=== PATIENT | female | born 1965 ===

== ENCOUNTER 2016-08-27 15:42 | Emergency (ER) | payer OTHER ==
[2016-08-27 15:43] VITALS: BMI 29.7
[2016-08-27 15:56] VITALS: BP 125/76; PULSE 80; RESP 18; TEMP 98.4; O2SAT 100
--- NOTE | 2016-08-27 16:06 | ED PDOC ---
HPI: General Adult Time Seen by Provider: 08/27/16 16:04 Chief Complaint (Nursing): Abnormal Skin Integrity Chief Complaint (Provider): facial pain History Per: Patient (50 y/o female here for evaluation of insect bite that became painful today. Attempted use of benadryl without relief. Has additional rash right side of flank mildly pruiritic.) Past Medical History Reviewed: Historical Data, Nursing Documentation, Vital Signs Vital Signs: Last Vital Signs Temp 98.4 F 08/27/16 15:54 Pulse 80 08/27/16 15:54 Resp 18 08/27/16 15:54 BP 125/76 08/27/16 15:54 Pulse Ox 100 08/27/16 15:54 - Medical History PMH: Anemia Denies: Chronic Kidney Disease - Surgical History Surgical History: Appendectomy - Family History Family History: States: No Known Family Hx - Home Medications Home Medications: Ambulatory Orders Medication Instructions Recorded Multivitamin [Multi-Vitamin Daily] 1 tab PO DAILY 08/18/15 DiphenhydrAMINE [Benadryl] 25 mg ASDIR 11/22/15 Docusate [Colace] 100 mg PO Q6 PRN 11/22/15 Ibuprofen [Motrin Tab] 200 mg Q6 PRN 11/22/15 Oxycodone HCl/Acetaminophen 5 - 325 mg PO Q6 PRN 11/22/15 [Percocet 5-325 mg Tablet] Butenafine HCl [Lotrimin Ultra] 0.5 gm TP BID #30 cream..g. 08/27/16 Clindamycin [Cleocin] 300 mg PO Q6 #28 cap 08/27/16 - Allergies Allergies/Adverse Reactions: Allergies Allergy/AdvReac Type Severity Reaction Status Date / Time Penicillins Allergy RASH Verified 08/19/15 10:01 Review of Systems ROS Statement: Except As Marked, All Systems Reviewed And Found Negative Skin: Positive for: Rash Physical Exam - Reviewed Nursing Documentation Reviewed: Yes Vital Signs Reviewed: Yes - Physical Exam Appears: Positive for: Well, Non-toxic, No Acute Distress Head Exam: Positive for: ATRAUMATIC, NORMAL INSPECTION, NORMOCEPHALIC Skin: Positive for: Warm. Negative for: Normal Color (erythema/tenderness noted hairline region of scalp 1.5 cm region) Eye Exam: Positive for: EOMI, Normal appearance, PERRL ENT: Positive for: Normal ENT Inspection, Other (left preauricular lymphadenopathy noted) Neck: Positive for: Normal, Painless ROM Cardiovascular/Chest: Positive for: Regular Rate, Rhythm Respiratory: Positive for: CNT, Normal Breath Sounds Gastrointestinal/Abdominal: Positive for: Normal Exam, Bowel Sounds, Soft Back: Positive for: Normal Inspection, Other (2.5 annular lesions noted with cental clearing.) Extremity: Positive for: Normal ROM Neurologic/Psych: Positive for: Alert, Oriented - ECG O2 Sat by Pulse Oximetry: 100 - Progress ED Course And Treament: IMpression: patient has infected insect bite on scalp/ tinea corporis on flank Disposition - Clinical Impression Clinical Impression: Insect bite, nonvenomous, of face, infected, Tinea corporis - Patient ED Disposition Is Patient to be Admitted: No - Disposition Referrals: [facility] [Outside] Disposition: Routine/Home Disposition Time: 16:07 Condition: FAIR Prescriptions: Clindamycin [Cleocin] 300 mg PO Q6 #28 cap Butenafine HCl [Lotrimin Ultra] 0.5 gm TP BID #30 cream..g. Instructions: Insect Bite or Sting (ED), Cellulitis (DC), Tinea Corporis (ED)
== END 2016-08-27 16:40 | disposition home or self-care (01) ==
LOC: H.ER 15:42
DX: B35.4 Tinea corporis (principal); S00.86XA Insect bite (nonvenomous) of other part of head, initial encounter; L08.9 Local infection of the skin and subcutaneous tissue, unspecified; W57.XXXA Bitten or stung by nonvenomous insect and other nonvenomous arthropods, initial encounter

== ENCOUNTER 2017-11-28 06:26 | Emergency (ER) | payer SELFPAY ==
[2017-11-28 06:27] VITALS: BMI 29.7
[2017-11-28] MEDS ORDERED: Lidocaine 5% Patch TD STA (07:41)
--- NOTE | 2017-11-28 07:47 | ED PDOC ---
HPI: Back Time Seen by Provider: 11/28/17 07:03 Chief Complaint (Nursing): Lower Extremity Problem/Injury Chief Complaint (Provider): Lower Extremity Problem/Injury History Per: Patient History/Exam Limitations: no limitations Onset/Duration Of Symptoms: Days (x1 week) Quality Of Discomfort: Cramping Additional Complaint(s): Tereza Tracey is a 52 y/o female with no significant past medical history, who presents to the ED complaining of lower back pain associated with right leg pain , onset x 1 week ago. Patient reports that she has been feeling lower back pain for the past x1 week but in the past x3-4 days the pain has begun radiating down her left leg and causing a cramping pain in her leg and toes. Patient states she has been taking x3 or 4 Advil for pain with minimal relief, her last dose was this morning at 04:30. She denies any fever, cough, shortness of breath , nausea, vomiting, headache, dizziness, urinary problems, or numbness/ tingling. She has no other medical complaints. Past Medical History Reviewed: Historical Data, Nursing Documentation, Vital Signs Vital Signs: Last Vital Signs Temp 98.7 F 11/28/17 06:42 Pulse 61 11/28/17 06:42 Resp 14 11/28/17 06:42 BP 115/78 11/28/17 06:42 Pulse Ox 99 11/28/17 06:42 - Medical History PMH: Anemia Denies: Chronic Kidney Disease - Surgical History Surgical History: Appendectomy, Cholecystectomy, Other surgeries: gastric bypass - Family History Family History: States: CAD (mother) - Social History Current smoker - smoking cessation education provided: Yes Alcohol: Occasional - Home Medications Home Medications: Ambulatory Orders Medication Instructions Recorded Multivitamin [Multi-Vitamin Daily] 1 tab PO DAILY 08/18/15 DiphenhydrAMINE [Benadryl] 25 mg ASDIR 11/22/15 Docusate [Colace] 100 mg PO Q6 PRN 11/22/15 Ibuprofen [Motrin Tab] 200 mg Q6 PRN 11/22/15 Oxycodone HCl/Acetaminophen 5 - 325 mg PO Q6 PRN 11/22/15 [Percocet 5-325 mg Tablet] Butenafine HCl [Lotrimin Ultra] 0.5 gm TP BID #30 cream..g. 08/27/16 Clindamycin [Cleocin] 300 mg PO Q6 #28 cap 08/27/16 Acetaminophen [Tylenol] 650 mg PO Q6H PRN #50 capsule 11/28/17 Cyclobenzaprine [Cyclobenzaprine 10 mg PO TID #30 tab 11/28/17 HCl] Methyl Salicylate/Menthol 1 each TP DAILY #10 adh..patch 11/28/17 [Salonpas Patch] - Allergies Allergies/Adverse Reactions: Allergies Allergy/AdvReac Type Severity Reaction Status Date / Time Penicillins Allergy RASH Verified 11/28/17 06:42 Review of Systems ROS Statement: Except As Marked, All Systems Reviewed And Found Negative Constitutional: Negative for: Fever, Chills Respiratory: Negative for: Cough, Shortness of Breath Gastrointestinal: Negative for: Nausea, Vomiting Genitourinary Female: Negative for: Dysuria, Frequency, Incontinence Musculoskeletal: Positive for: Back Pain (lower), Leg Pain (right ) Neurological: Negative for: Headache, Dizziness Physical Exam - Reviewed Nursing Documentation Reviewed: Yes Vital Signs Reviewed: Yes - Physical Exam Appears: Positive for: Non-toxic, No Acute Distress Head Exam: Positive for: ATRAUMATIC, NORMOCEPHALIC Skin: Positive for: Normal Color, Warm, Dry Eye Exam: Positive for: EOMI, Normal appearance, PERRL ENT: Positive for: Normal ENT Inspection Neck: Positive for: Normal, Painless ROM, Supple Cardiovascular/Chest: Positive for: Regular Rate, Rhythm. Negative for: Murmur Respiratory: Positive for: CNT, Normal Breath Sounds Gastrointestinal/Abdominal: Positive for: Normal Exam, Soft Back: Positive for: Vertebral Tenderness (Local tenderenss of posterior superior illiac spine) Extremity: Positive for: Other (Straight leg raise test positive for right leg) Neurologic/Psych: Positive for: Other (L5-S1 strong). Negative for: Motor/ Sensory Deficits - ECG O2 Sat by Pulse Oximetry: 99 (RA) Pulse Ox Interpretation: Normal - Radiology X-Ray: Viewed By Tn X-Ray Interpretation: No Acute Disease - Progress Re-evaluation Time: 08:50 Condition: Re-examined, Improving,but remains with symptoms Medical Decision Making Medical Decision Making: Time:07:39 Initial Impression: Initial Plan: --Ed urine --ED urine dipstick --RAD - Lumbar spine complete --RAD - Pelvis one view --Flexeril 10 mg PO --Lidoderm 1 ea TD --Tylenol 325 mg tab 975 PO ----- Scribe Attestation: Documented by Sumit Batista, acting as a scribe for Tracee Yoon MD. Provider Scribe Attestation: All medical record entries made by the Scribe were at my direction and personally dictated by me. I have reviewed the chart and agree that the record accurately reflects my personal performance of the history, physical exam, medical decision making, and the department course for this patient. I have also personally directed, reviewed, and agree with the discharge instructions and disposition. 9.00a - feeling better. x-rays reviewed. Will discharge. Disposition - Clinical Impression Clinical Impression: Muscle strain, Radiculopathy - Patient ED Disposition Is Patient to be Admitted: No Doctor Will See Patient In The: Office Counseled Patient/Family Regarding: Diagnosis, Need For Followup, Rx Given - Disposition Referrals: [facility] [Outside] [facility] [Outside] Disposition: Routine/Home Disposition Time: 09:17 Condition: STABLE Prescriptions: Acetaminophen [Tylenol] 650 mg PO Q6H PRN #50 capsule PRN Reason: Pain, Moderate (4-7) Cyclobenzaprine [Cyclobenzaprine HCl] 10 mg PO TID #30 tab Methyl Salicylate/Menthol [Salonpas Patch] 1 each TP DAILY #10 adh..patch Instructions: Muscle Strain, Radiculopathy Forms: [employer] ([place]), [facility] ED School/Work Excuse - POA Present On Arrival: None
[2017-11-28] MEDS ORDERED: Lidocaine 5% Patch TD ONE (08:37)
--- NOTE | 2017-11-28 09:15 | RAD ---
PROCEDURE: Radiographs of the pelvis. HISTORY: right buttock pain with radiation to the RLE COMPARISON: None. FINDINGS: BONES: Pelvic ring appears intact without fracture or dislocation. Pubic symphysis is unremarkable appearing. No destructive bony lesion appreciable throughout. JOINTS: Degenerative changes seen the bilateral hip and sacroiliac joints and appear [id number] severity overall. No definite subluxation or dislocation appreciable. OTHER FINDINGS: There is a questionable surgical at the left hemipelvis soft tissues. IMPRESSION: No acute fracture dislocation throughout the pelvic ring with the pubic symphysis intact. Degenerative changes appear [id number] as discussed above.
--- NOTE | 2017-11-28 09:19 | RAD ---
PROCEDURE: Radiographs of the Lumbar Spine. HISTORY: right buttock pain with radiation to the RLE COMPARISON: No prior. FINDINGS: BONES: Normal alignment. No listhesis. No fracture. DISC SPACES: Disc height loss with vacuum changes at the L5-S1 level suggests advanced degenerative disease. Limited spondylosis appreciated at mid lumbar levels. Limited disc height loss is present at L4-5 as well. OTHER FINDINGS: Surgical clips in the bilateral upper quadrants in the abdomen incidentally as well as solitary clip in the left pelvic soft tissues. IMPRESSION: No fracture or spondylolisthesis throughout the lumbar spine. Mid to inferior lumbar degenerative disease is appreciated.
[2017-11-28 09:45] VITALS: BP 126/78; PULSE 78; RESP 19; TEMP 97; O2SAT 98
== END 2017-11-28 09:45 | disposition home or self-care (01) ==
LOC: H.ER 06:26
DX: M54.16 Radiculopathy, lumbar region (principal); Z88.0 Allergy status to penicillin

== ENCOUNTER 2018-08-08 10:51 | Emergency (ER) | payer OTHER ==
[2018-08-08 10:51] VITALS: BMI 29.7
--- NOTE | 2018-08-08 11:45 | ED PDOC ---
HPI: Abdomen Time Seen by Provider: 08/08/18 11:32 Chief Complaint (Nursing): Abdominal Pain Chief Complaint (Provider): Abdominal Pain History Per: Patient History/Exam Limitations: no limitations Onset/Duration Of Symptoms: Days Current Symptoms Are (Timing): Still Present Additional Complaint(s): 52 y/o female with a PMHx of Gastric Bypass surgery, tummy tuck surgery, cholecysectomy and appendectomy presents to the ED for evaluation of lower abdominal pain, onset three days ago. At onset, patient states she thought the pain was related to her menses. Patient further states pain has remained constant, but waxes and wanes in intensity with occasionally emitting a sharp pain. Patient notes that she has not started her menstrual cycle yet. Patient reports of taking 600 mg of Ibuprofen at 1 AM with no relief. Patient notes pain is more prominent in the RLQ. Otherwise, patient denies fever, nausea, vomiting, diarrhea and vaginal discharge. PMD: no provider Past Medical History Reviewed: Historical Data, Nursing Documentation, Vital Signs Vital Signs: Last Vital Signs Temp 97.7 F 08/08/18 11:17 Pulse 66 08/08/18 11:17 Resp 20 08/08/18 11:17 BP 127/75 08/08/18 11:17 Pulse Ox 100 08/08/18 11:17 - Medical History PMH: Anemia Denies: Chronic Kidney Disease - Surgical History Surgical History: Appendectomy, Cholecystectomy, - Family History Family History: States: CAD (mother) - Home Medications Home Medications: Ambulatory Orders Medication Instructions Recorded Multivitamin [Multi-Vitamin Daily] 1 tab PO DAILY 08/18/15 DiphenhydrAMINE [Benadryl] 25 mg ASDIR 11/22/15 Docusate [Colace] 100 mg PO Q6 PRN 11/22/15 Ibuprofen [Motrin Tab] 200 mg Q6 PRN 11/22/15 Oxycodone HCl/Acetaminophen 5 - 325 mg PO Q6 PRN 11/22/15 [Percocet 5-325 mg Tablet] Butenafine HCl [Lotrimin Ultra] 0.5 gm TP BID #30 cream..g. 08/27/16 Clindamycin [Cleocin] 300 mg PO Q6 #28 cap 08/27/16 Acetaminophen [Tylenol] 650 mg PO Q6H PRN #50 capsule 11/28/17 Cyclobenzaprine [Cyclobenzaprine 10 mg PO TID #30 tab 11/28/17 HCl] Methyl Salicylate/Menthol 1 each TP DAILY #10 adh..patch 11/28/17 [Salonpas Patch] Nitrofurantoin Macrocrystals 100 mg PO BID #9 cap 08/08/18 [Macrobid] Phenazopyridine [Pyridium] 200 mg PO TID PRN #6 tab 08/08/18 - Allergies Allergies/Adverse Reactions: Allergies Allergy/AdvReac Type Severity Reaction Status Date / Time Penicillins Allergy RASH Verified 11/28/17 06:42 Review of Systems ROS Statement: Except As Marked, All Systems Reviewed And Found Negative Constitutional: Negative for: Fever Gastrointestinal: Positive for: Abdominal Pain. Negative for: Nausea, Vomiting, Diarrhea Genitourinary Female: Negative for: Vaginal Discharge Physical Exam - Reviewed Nursing Documentation Reviewed: Yes Vital Signs Reviewed: Yes - Physical Exam Appears: Positive for: Uncomfortable Head Exam: Positive for: ATRAUMATIC Skin: Positive for: Normal Color, Warm, Dry Eye Exam: Positive for: Normal appearance, EOMI, PERRL Neck: Positive for: Normal, Painless ROM Cardiovascular/Chest: Positive for: Regular Rate, Rhythm. Negative for: Murmur Respiratory: Positive for: Normal Breath Sounds. Negative for: Respiratory Distress Gastrointestinal/Abdominal: Positive for: Tenderness (bilateral lower abdominal tenderness (right > left)) Back: Positive for: Normal Inspection. Negative for: L CVA Tenderness, R CVA Tenderness, Vertebral Tenderness Extremity: Positive for: Normal ROM. Negative for: Deformity Neurological/Psych: Positive for: Awake, Alert, Oriented. Negative for: Motor/Sensory Deficits - Laboratory Results Result Diagrams: 08/08/18 11:51 08/08/18 11:51 - ECG O2 Sat by Pulse Oximetry: 100 (RA) Pulse Ox Interpretation: Normal Medical Decision Making Medical Decision Making: Time: 1143 Impression: Abdominal Pain Plan: -- CMP -- CBC with Differentials -- PTT -- Prothrombin Time -- Urinalysis -- US Pelvis/Transvag Time: 1149 Plan: -- CT Abd/Pelvis IV Contrast ONLY -- ED Urine -- ED Urine Dipsticck -- Morphine 2 mg IV Time: 1401 Plan: -- Macrobid 100 mg PO Time: 1445 CT RESULTS Date of service: 08/08/2018 PROCEDURE: CT Abdomen and Pelvis with contrast HISTORY: BLQ pain, R>L COMPARISON: 08/18/2015 CT scan TECHNIQUE: Contrast dose: 90 milliliters Radiation dose: Total exam DLP = 780.88 mGy-cm. This CT exam was performed using one or more of the following dose reduction techniques: Automated exposure control, adjustment of the mA and/or kV according to patient size, and/or use of iterative reconstruction technique. FINDINGS: LOWER THORAX: Unremarkable. LIVER: Liver is fatty infiltrated, without evidence of new focal mass. There is once again evidence of mild intrahepatic ductal dilatation seen on the prior study. This may be minimally more prominent although no common bile duct stone or comm on hepatic stone is seen. GALLBLADDER AND BILE DUCTS: Gallbladder is been removed since the prior exam. Common bile duct is minimally more prominent than on prior study but within normal limits for a post cholecystectomy patient of this age. No common bile duct stone is seen. PANCREAS: Unremarkable. No gross lesion or ductal dilatation. SPLEEN: Unremarkable. ADRENALS: Unremarkable. No mass. KIDNEYS AND URETERS: Unremarkable. No hydronephrosis. No solid mass. VASCULATURE: Unremarkable. No aortic aneurysm. No aortic atherosclerotic calcification or mural plaque present. BOWEL: There is evidence of prior gastric surgery. No new gastric distention or wall thickening is seen. Duodenum is unremarkable. There additionally surgical sutures seen in the small bowel region. Fluid-filled small bowel loops are noted without significant small bowel dilatation. There is no swelling of the mesentery appreciated. Visualized colon shows no evidence of colonic wall thickening or pericolonic inflammatory change. APPENDIX: Appendix is not well seen although no periappendiceal or right lower quadrant inflammatory process is noted. PERITONEUM: No ascites is seen. No free air is identified. No mesenteric adenopathy is seen. LYMPH NODES: Unremarkable. No enlarged lymph nodes. BLADDER: Unremarkable. REPRODUCTIVE: There is evidence of an enlarged uterus with probable small previously identified fibroids. There is evidence of a mildly prominent right adnexal cyst this measures 2.9 x 2.5 centimeters. No significant inflammatory changes are noted. A few small probable follicles are seen in the left ovary. No significant fluid is seen in the pelvis. No presacral masses are seen. BONES: No acute fracture. OTHER FINDINGS: None. IMPRESSION: Unremarkable contrast enhanced CT of the abdomen and pelvis. No evidence of bowel obstruction or colitis. Status post gastric bypass surgery and cholecystectomy. Common bile duct is normal in size for a post cholecystec fallon patient of this age. There is a mild amount of persistent intrahepatic ductal dilatation identified seen on prior study. Small right adnexal cyst without adjacent inflammatory change. Fibroid uterus. No CT scan evidence of appendicitis, colitis or obstructive uropathy. Accession No. : [id number] Patient Name / ID : PAULA HOGUE / [id number] Exam Date : 08/08/2018 14:02:28 ( Approved ) Study Comment : Sex / Age : F / 52Y Creator : Chelsi Gallagher MD Dictator : Chelsi Gallagher MD Flight Purser : Cro : Chelsi Gallagher MD Approver2 : Report Date : 08/08/2018 15:19:14 My Comment : Date of service: 08/08/2018 HISTORY: BLQ, > RLQ COMPARISON: None available. TECHNIQUE: Real-time transabdominal and transvaginal ultrasound examination of the pelvis were performed. FINDINGS: UTERUS: Measures 9.7 x 4.7 x 5.3 cm. Minor heterogeneity is seen. Small posterior uterine fibroid is noted measuring 2 x 2 x 2.3 centimeters. Visualized cervix is unremarkable. scar is noted. ENDOMETRIUM: Measures 9 mm in diameter. Unremarkable. CERVIX: No cervical abnormality identified. RIGHT OVARY: Measures 4 x 3.8 x 2.8 cm. There is evidence of a 3.1 x 2.8 x 2.8 centimeter hyp oechoic simple cyst in the right ovary. No internal echoes or wall thickening is seen. Normal flow. LEFT OVARY: Measures 3.4 x 2.8 x 1.8 cm. No solid mass. There is a 12 millimeter x 12 millimeter x 10 millimeter hypoechoic cyst in the left ovary. There is normal flow in the left ovary. FREE FLUID: No significant free fluid noted. OTHER FINDINGS: None. IMPRESSION: Simple right ovarian cyst. Smaller left ovarian follicle or cyst. Small uterine fibroid. Scribe Attestation: Documented by Daren Sharma, acting as a scribe Clarice Londono MD. Provider Scribe Attestation: All medical record entries made by the Scribe were at my direction and personally dictated by me. I have reviewed the chart and agree that the record accurately reflects my personal performance of the history, physical exam, medical decision making, and the department course for this patient. I have also personally directed, reviewed, and agree with the discharge instructions and disposition. Disposition - Clinical Impression Clinical Impression: UTI (urinary tract infection) - Disposition Referrals: [facility] [Outside] Disposition: Routine/Home Disposition Time: 15:26 Condition: STABLE Prescriptions: Nitrofurantoin Macrocrystals [Macrobid] 100 mg PO BID #9 cap Phenazopyridine [Pyridium] 200 mg PO TID PRN #6 tab PRN Reason: Bladder Spasm Instructions: Urinary Tract Infections in Adults Forms: [facility] (Korean)
[2018-08-08] MEDS ORDERED: Iohexol 300 100 ML IJ ONE (12:10)
[2018-08-08] MEDS ORDERED: Sodium Chloride 0.9% 50 ML IV ONE (12:10)
[2018-08-08 12:14] LABS: BASO % 0.4 % (0.0-2.0); EOS # 0.1 K/uL (0.0-0.7); EOS % 1.7 % (0.0-4.0); HEMOGLOBIN 11.1 g/dL (12.0-16.0); LYMPH # 2.2 K/uL (1.0-4.3); LYMPH % 25.6 % (20.0-40.0); MEAN CELL VOLUME 68.6 fl (81.0-99.0); MEAN CORPUSCULAR HEMOGLOBIN 22.1 pg (27.0-31.0); MEAN CORPUSCULAR HGB CONC 32.2 g/dL (33.0-37.0); MEAN PLATELET VOLUME 8.9 fl (7.2-11.7); MONO # 0.5 K/uL (0.0-0.8); MONO % 5.7 % (0.0-10.0); NEUT # 5.6 K/uL (1.8-7.0); NEUT % 66.6 % (50.0-75.0); NRBC % 0.1 % (0.0-0.0); RBC 5.05 Mil/uL (3.80-5.20); RED CELL DISTRIBUTION WIDTH 17.4 % (11.5-14.5); WHITE BLOOD COUNT 8.4 K/uL (4.8-10.8)
[2018-08-08 12:16] LABS: INR 0.9; PROTHROMBIN TIME 10.5 Seconds (9.8-13.1)
[2018-08-08 12:19] LABS: PARTIAL THROMBOPLASTIN TIME 30.5 Seconds (25.6-37.1)
[2018-08-08 12:28] LABS: ALB/GLOB RATIO 1.2 (1.0-2.1); ALBUMIN 4.1 g/dL (3.5-5.0); ALT/SGPT 33 U/L (9-52); AST/SGOT 32 U/L (14-36); BLOOD UREA NITROGEN 16 mg/dl (7-17); CALCIUM 8.9 mg/dL (8.4-10.2); GFR NON-AFRICAN AMERICAN > 60
[2018-08-08 12:37] LABS: SQUAMOUS EPITHIAL 6 /hpf (0-5); URINE BACTERIA OCC (<OCC); URINE BILIRUBIN NEGATIVE (NEGATIVE); URINE BLOOD NEGATIVE (NEGATIVE); URINE CLARITY SLIGHTY-CLOUDY (Clear); URINE COLOR YELLOW (YELLOW); URINE GLUCOSE (UA) NEG (NEGATIVE); URINE LEUKOCYTE ESTERASE NEG Leu/uL (Negative); URINE PROTEIN NEGATIVE (NEGATIVE); URINE UROBILINOGEN 0.2-1.0 mg/dL (0.2-1.0)
--- NOTE | 2018-08-08 14:49 | CT ---
Date of service: 08/08/2018 PROCEDURE: CT Abdomen and Pelvis with contrast HISTORY: BLQ pain, R>L COMPARISON: 08/18/2015 CT scan TECHNIQUE: Contrast dose: 90 milliliters Radiation dose: Total exam DLP = 780.88 mGy-cm. This CT exam was performed using one or more of the following dose reduction techniques: Automated exposure control, adjustment of the mA and/or kV according to patient size, and/or use of iterative reconstruction technique. FINDINGS: LOWER THORAX: Unremarkable. LIVER: Liver is fatty infiltrated, without evidence of new focal mass. There is once again evidence of mild intrahepatic ductal dilatation seen on the prior study. This may be minimally more prominent although no common bile duct stone or common hepatic stone is seen. GALLBLADDER AND BILE DUCTS: Gallbladder is been removed since the prior exam. Common bile duct is minimally more prominent than on prior study but within normal limits for a post cholecystectomy patient of this age. No common bile duct stone is seen. PANCREAS: Unremarkable. No gross lesion or ductal dilatation. SPLEEN: Unremarkable. ADRENALS: Unremarkable. No mass. KIDNEYS AND URETERS: Unremarkable. No hydronephrosis. No solid mass. VASCULATURE: Unremarkable. No aortic aneurysm. No aortic atherosclerotic calcification or mural plaque present. BOWEL: There is evidence of prior gastric surgery. No new gastric distention or wall thickening is seen. Duodenum is unremarkable. There additionally surgical sutures seen in the small bowel region. Fluid-filled small bowel loops are noted without significant small bowel dilatation. There is no swelling of the mesentery appreciated. Visualized colon shows no evidence of colonic wall thickening or pericolonic inflammatory change. APPENDIX: Appendix is not well seen although no periappendiceal or right lower quadrant inflammatory process is noted. PERITONEUM: No ascites is seen. No free air is identified. No mesenteric adenopathy is seen. LYMPH NODES: Unremarkable. No enlarged lymph nodes. BLADDER: Unremarkable. REPRODUCTIVE: There is evidence of an enlarged uterus with probable small previously identified fibroids. There is evidence of a mildly prominent right adnexal cyst this measures 2.9 x 2.5 centimeters. No significant inflammatory changes are noted. A few small probable follicles are seen in the left ovary. No significant fluid is seen in the pelvis. No presacral masses are seen. BONES: No acute fracture. OTHER FINDINGS: None. IMPRESSION: Unremarkable contrast enhanced CT of the abdomen and pelvis. No evidence of bowel obstruction or colitis. Status post gastric bypass surgery and cholecystectomy. Common bile duct is normal in size for a post cholecystectomy patient of this age. There is a mild amount of persistent intrahepatic ductal dilatation identified seen on prior study. Small right adnexal cyst without adjacent inflammatory change. Fibroid uterus. No CT scan evidence of appendicitis, colitis or obstructive uropathy.
--- NOTE | 2018-08-08 15:22 | US ---
Date of service: 08/08/2018 HISTORY: BLQ, > RLQ COMPARISON: None available. TECHNIQUE: Real-time transabdominal and transvaginal ultrasound examination of the pelvis were performed. FINDINGS: UTERUS: Measures 9.7 x 4.7 x 5.3 cm. Minor heterogeneity is seen. Small posterior uterine fibroid is noted measuring 2 x 2 x 2.3 centimeters. Visualized cervix is unremarkable. scar is noted. ENDOMETRIUM: Measures 9 mm in diameter. Unremarkable. CERVIX: No cervical abnormality identified. RIGHT OVARY: Measures 4 x 3.8 x 2.8 cm. There is evidence of a 3.1 x 2.8 x 2.8 centimeter hypoechoic simple cyst in the right ovary. No internal echoes or wall thickening is seen. Normal flow. LEFT OVARY: Measures 3.4 x 2.8 x 1.8 cm. No solid mass. There is a 12 millimeter x 12 millimeter x 10 millimeter hypoechoic cyst in the left ovary. There is normal flow in the left ovary. FREE FLUID: No significant free fluid noted. OTHER FINDINGS: None. IMPRESSION: Simple right ovarian cyst. Smaller left ovarian follicle or cyst. Small uterine fibroid.
[2018-08-08 15:44] VITALS: BP 120/63; PULSE 63; RESP 16; TEMP 98.8
[2018-08-09 08:01] VITALS: O2SAT 100
== END 2018-08-08 15:42 | disposition home or self-care (01) ==
LOC: H.ER 10:51
DX: N39.0 Urinary tract infection, site not specified (principal); Z88.0 Allergy status to penicillin; Z90.49 Acquired absence of other specified parts of digestive tract; Z98.84 Bariatric surgery status
CPT/HCPCS: 74177; 76830; 76856; 80053; 81003; 81025; 85025; 85610; 85730; 99285; J1885; J2270; Q9967